=== PATIENT | female | born 1950 | race Caucasian/White ===

== ENCOUNTER 2021-09-15 09:33 | Outpatient (CLI) | payer MEDICARE, OTHER ==
--- NOTE | 2021-09-22 13:02 | Mammography Report ---
BILATERAL DIGITAL SCREENING MAMMOGRAM 3D/2D: 09/15/2021 CLINICAL: Routine screening. No prior exams were available for comparison. There are scattered fibroglandular elements in both br easts. There are 0.2 cm grouped coarse calcifications in the right breast at 12 o'clock anterior depth. No other significant masses, calcifications, or other findings are seen in either breast. IMPRESSION: INCOMPLETE: NEEDS ADDITIONAL IMAGING EVALUATION The 0.2 cm grouped coarse calcifications in the right breast are indeterminate. Diagnostic mammogram for additional views to include mediolateral and spot magnification views is rec ommended. This exam was interpreted at Station ID: [id number]. NOTE: For mammograms, a report in lay terms will be sent to the patient. Approximately 15% of breast malignancies will not be visualized mammographically. In the management of a palpable breast mass, a negative mammogram must not discourage biopsy of a clinically suspicious lesion. Electronically Signed By: Terrence William M.D. aty/:09/22/2021 11:30:05 ACR BI-RADS Category 0: Incomplete 3340F PARENCHYMAL PATTERN: (A) - The breast(s) demonstrate(s) scattered fibroglandular densities. BI-RADS CATEGORY: (0) - 0 RECOMMENDATION: (ADDMAM) - Recommend additional mammographic views. [id number] Immediate follow-up LATERALITY: (R)
== END 2021-09-15 09:34 | disposition home or self-care (01) ==
LOC: DI.S 09:33
PROVIDERS: ATTEND Family Medicine
DX: Z12.31 Encounter for screening mammogram for malignant neoplasm of breast (principal); R92.8 Other abnormal and inconclusive findings on diagnostic imaging of breast

== ENCOUNTER 2022-04-01 09:05 | Outpatient (CLI) | payer MEDICARE, OTHER ==
--- NOTE | 2022-04-01 13:53 | MRI Report ---
PROCEDURE: MRI brain without contrast INDICATIONS: DIZZINESS TECHNIQUE: Noncontrast axial T1 spin echo, axial T2 fast spin echo, sagittal and axial FLAIR, coronal T2 fast sp in echo, axial gradient echo, axial diffusion and ADC through the brain. COMPARISON: None. FINDINGS: Image quality: Excellent. CSF Spaces: Basal cisterns are patent. No extra-axial fluid collections. Ventricles are normal in size and shape. Brain: No intracranial masses or hemorrhage. Nicole/white matter interface is normal. Brainstem appe ars normal. Diffusion-weighted images demonstrate no acute infarct. Normal intravascular flow voids are present. Moderate atrophy and mild white matter chronic ischemic change present. Skull and face: Calvarium has normal marrow signal. Orbits appear normal. Sinuses: Sinuses and mastoids are clear. IMPRESSION: Atrophy and chronic ischemic change without acute hemorrhage, infarct or mass lesion Reviewed by: Boris Lane MD on 04/01/2022 12:52 PM AKDT Approved by: Boris Lane MD on 04/01/2022 12:52 PM AKDT Station ID: [id number]
== END 2022-04-01 09:06 | disposition home or self-care (01) ==
LOC: DI 09:05
PROVIDERS: ATTEND Nurse Practitioner Family
DX: G31.9 Degenerative disease of nervous system, unspecified (principal); I67.82 Cerebral ischemia; I65.23 Occlusion and stenosis of bilateral carotid arteries

== ENCOUNTER 2023-02-13 10:05 | Outpatient (CLI) | payer MEDICARE, OTHER ==
--- NOTE | 2023-02-15 13:52 | MRI Report ---
PROCEDURE: FOOT WO - RT INDICATIONS: RIGHT FOOT PAIN TECHNIQUE: Noncontrast sagittal T1 spin echo and T2 fast spin echo with fat saturation, long-axis T1 spin echo a nd T2 fast spin echo with fat saturation, short-axis proton density fast spin echo and T2 fast spin e cho with fat saturation through the forefoot. COMPARISON: Right foot radiographs 01/14/2023. FINDINGS: Image quality: Excellent. Bones and joints: Osseous edema is seen within the 1st metatarsal head without a clearly defined fra cture line is seen. There is also osseous edema in the adjacent medial hallux sesamoid and in the 1st proximal phalangeal base. Moderate 1st metatarsophalangeal joint osteoarthrosis. Mild osseous edema is seen within the dorsal aspect of the 2nd through 5th metatarsal heads. There is edema within the 5 th middle phalanx and focally within the adjacent 5th proximal phalangeal head. Mild edema within the remaining toes is likely related to scattered degenerative changes within the interphalangeal joints . Soft tissues: The visualized plantar foot muscles demonstrate normal signal and bulk. Visualized fl exor and extensor tendons appear intact, without tenosynovitis. Small nonspecific intermetatarsal bur ken effusions. Sagittal images demonstrate no evidence for plantar plate tears. IMPRESSION: 1.Osseous edema is seen within the 1st metatarsal head, 1st proximal phalangeal base, medial hallux s esamoid, dorsal aspect of the 2nd through 5th metatarsals, and the 5th middle phalanx, which is suspi cious for possible multiple osseous contusions. Recommend correlation with mechanism of prior injury. No definite fracture line is seen. 2.No significant ligament or tendon injury is seen. Reviewed by: Humphrey Yung MD on 02/15/2023 1:51 PM PDT Approved by: Humphrey Yung MD on 02/15/2023 1:51 PM PDT Station ID: [id number]
== END 2023-02-13 10:06 | disposition home or self-care (01) ==
LOC: DI 10:05
PROVIDERS: ATTEND Podiatrist
DX: R93.6 Abnormal findings on diagnostic imaging of limbs (principal)

== ENCOUNTER 2023-04-19 08:23 | Outpatient (CLI) | payer MEDICARE, OTHER ==
--- NOTE | 2023-04-20 08:41 | XRAY Report ---
PROCEDURE: Chest 2 View X-Ray INDICATIONS: DYSPNEA TECHNIQUE: 2 views of the chest were acquired. COMPARISON: None. FINDINGS: Surgical changes and devices: Intact sternotomy wires. Lungs and pleura: Lungs are clear. No pleural effusion or pneumothorax. Mediastinum: Mediastinal contours appear normal. Heart size is normal. Aortic arch is calcified, in dicating atherosclerosis. Bones and chest wall: No suspicious bony lesions. Overlying soft tissues appear unremarkable. Upper abdomen: Calcification of the abdominal aorta. Visualized upper abdomen is otherwise unremarkab le. IMPRESSION: No acute cardiopulmonary process. Reviewed by: Cortes Givens MD on 04/19/2023 12:43 PM PDT Approved by: Cortes Givens MD on 04/19/2023 12:43 PM PDT Station ID: [id number]
== END 2023-04-19 08:24 | disposition home or self-care (01) ==
LOC: DI.S 08:23
PROVIDERS: ATTEND Physician Assistant
DX: R06.00 Dyspnea, unspecified (principal)

== ENCOUNTER 2024-04-07 12:26 | Outpatient (CLI) | payer MEDICARE, OTHER ==
[2024-04-07] MEDS ORDERED: GADOTERATE MEGLUMINE 10 MMOL/20 ML VIAL ONE (12:57)
[2024-04-07] MEDS: GADOTERATE MEGLUMINE 10 MMOL/20 ML VIAL IVP ONE (14:30)
--- NOTE | 2024-04-08 19:21 | MRI Report ---
PROCEDURE: Brain W/WO INDICATIONS: Meningioma TECHNIQUE: Multiplanar multisequential MR images of the brain were obtained before and after intrave nous contrast administration. COMPARISON: Prior 04/01/2022 FINDINGS: CSF spaces: Basal cisterns are patent. No extra-axial fluid collections. Ventricles are normal in size and shape. Brain: No midline shift. No intracranial bleeds or masses. No abnormal intracranial enhancement. The brainstem appears normal. Diffusion-weighted images demonstrate no acute infarct. Normal intrav ascular flow voids are present. Skull and face: Calvarial marrow is normal in signal. Orbits appear normal. Sinuses: Sinuses and mastoids appear clear. IMPRESSION: Stable atrophy and mild chronic ischemic change without acute infarct, hemorrhage or mass lesion. No evidence of meningioma Reviewed by: Boris Lane MD on 04/08/2024 6:20 PM AKDT Approved by: Boris Lane MD on 04/08/2024 6:20 PM AKDT Station ID: [id number]
== END 2024-04-07 12:27 | disposition home or self-care (01) ==
LOC: DI 12:26
PROVIDERS: ATTEND Physician Assistant Medical
DX: D32.9 Benign neoplasm of meninges, unspecified (principal)
CPT/HCPCS: 70553; A9575

== ENCOUNTER 2025-04-13 11:00 | Inpatient (IN) ==
[2025-04-13 12:03] LABS: HCT - HEMATOCRIT 33.8 % (37.0-47.0); HGB - HEMOGLOBIN 11.5 g/dL (12.0-16.0); MEAN PLATELET VOLUME 8.9 fL (7.9-10.8); NRBC ABSOLUTE COUNT (AUTO) 0.00 x10^3/uL; NUCLEATED RED BLOOD CELLS AUTO 0.0 /100WBC; PLT - PLATELET COUNT 248 10^3/uL (130-450); RED CELL DISTRIBUTION WIDTH 12.6 % (12.0-15.0)
--- NOTE | 2025-04-13 12:05 | ED Physician Documentation ---
History of Present Illness Stated complaint Stated Complaint: LIGHHEADED, DIFF BALANCING, V,D, DEHYDRATED Chief complaint Chief Complaint: General History obtained from History obtained from: Patient History of Present Illness Timing: Prior to arrival Additonal information Additional information: Patient is a 74-year-old female presenting to the emergency department with generalized weakness nausea vomiting and diarrhea. Symptoms have been going on for about a week. About 2 to 3 weeks ago she restarted on her metformin and close quality that she takes for history of breast cancer. Meds/Allgy Home Medications Ambulatory Orders Medication Instructions Recorded Confirmed ribociclib 400 mg/day (200 mg x 2) 400 mg PO DAILY 04/14/25 tablets (Kisqali) Held on 03/08/25. Instructions: Resume on 03/19/25. please verify when to resume with oncology acetaminophen 325 mg tablet 650 mg (2 x 325 mg) PO Q4H R PRN 03/08/25 04/14/25 Pain 1 to 4, or Fever #30 tabs anastrozole 1 mg tablet 1 mg PO DAILY #30 tabs 03/0804/14/25 clopidogrel 75 mg tablet 75 mg PO DAILY #30 tabs 02/1704/13/25 paroxetine HCl 20 mg tablet 20 mg PO DAILY #30 tabs 04/14/25 vit,calcium 27-ferrous 1 tab PO DAILYWM #30 t abs 03/08/25 04/14/25 fum 60 mg iron-folic acid 1 mg tablet (Trinatal Rx 1) propranolol 20 mg tablet 20 mg PO BID #60 tabs 04/14/25 rosuvastatin 40 mg tablet 40 mg PO DAILY #30 tabs 02/1704/14/25 metformin 1,000 mg tablet 1,000 mg PO BID 04/03/25 Allergies Allergies Allergy/AdvReac Type Severity Reaction Status Date / Time No Known Drug Allergies Allergy Verified 04/13/25 11:12 PFSH Active Problems All Active Problems (Updated 04/13/25 @ 16:22 by ) NOLAN (acute kidney injury) (Acute) Nausea & vomiting (Acute) Pre-operative cardiovascular examination (Acute) Depression (Acute) Anemia (Acute) Hypokalemia (Acute) Generalized weakness (Acute) Diarrhea (Acute) Medical History Medical History (Updated 04/13/25 @ 16:22 by ) Subclavian bypass stenosis 1990 Hyperlipidemia History of Fxmoz-Hjdnszkgq-Bjqul (WPW) syndrome Hypertension Diabetes History of breast cancer Surgical History Surgical History (Updated 04/13/25 @ 14:29 by Nan Smith RN) S/P hysterectomy 1981 Family History Family History (Updated 04/13/25 @ 14:31 by Nan Smith RN) Father Heart attack High blood pressure Mother Diabetes Brother Cancer Son Mental disorder Social History Social History (Updated 04/12/25 @ 15:10 by Nan Smith RN) Smoking Status: Former smoker If you are a former smoker, when did you quit? (Date/Year): 1995 Number of Years Smoked: 41 Second hand tobacco smoke exposure: No Do you dip or chew tobacco?: No Level: Independent Home Mobility Equipment: Wheeled walker Do you feel safe in your home environment?: Yes History of physical, verbal, emotional, or financial abuse?: No ETOH Use: None Substance Use: denies use Exam Exam Vital Signs: Vital Signs x48h Temp Pulse Resp BP Pulse Ox 04/13/25 12:03 36.4 C L 92 133/61 H 100 04/13/25 11:10 36.8 C 98 18 135/93 H 98 Constitutional normal general appearance HENMT normocephalic, head/scalp atraumatic and hearing grossly normal bilaterally Oropharynx shows dry mucous membranes. Eyes PERRL, EOMs intact bilaterally and conjunctivae normal Neck/C-Spine visual inspection normal Lymph no lymphadenopathy noted Chest inspection of chest normal Respiratory breath sounds equal bilaterally, normal respiratory effort and clear to auscultation bilaterally Cardiovascular normal heart rate noted, regular rhythm noted and no gallop Gastrointestinal abdomen normal to inspection Abdomen nontender no rebound or guarding soft on examination no CVA tenderness. Results Vitals Vitals: Oxygen O2 Source Room air Labs Labs: Microbiology 04/13/25 16:03 Urine Culture - Final Urine,Random 50-100,000 COLONIES/ML Polymicrobial growth including potential pathogens. This is suggestive of skin or other contamination. Laboratory Tests 04/13/25 04/13/25 04/13/25 11:14 11:49 14:10 WBC 6.9 RBC 3.30 L Hgb 11.5 L Hct 33.8 L MCV 102.4 H MCH 34.8 H MCHC 34.0 RDW 12.6 Plt Count 248 MPV 8.9 Neut # (Auto) 5.2 Lymph # (Auto) 1.3 L [place] # (Auto) 0.3 Eos # (Auto) 0.0 Baso # (Auto) 0.1 Absolute Nucleated RBC 0.00 Nucleated RBC % 0.0 VBG pH VBG pCO2 VBG pO2 VBG HCO3 VBG Total CO2 VBG O2 Saturation VBG Base Excess Sodium 133 L Potassium 4.6 H Chloride 94 L Carbon Dioxide 15 L Anion Gap 24.0 H BUN 57 H Creatinine 3.4 H Estimated GFR (MDRD) 13 L Glucose 152 H POC Whole Bld Glucose Calcium 10.0 Total Bilirubin 0.8 AST 29 ALT 31 Alkaline Phosphatase 70 Total Protein 7.9 Albumin 4.3 Globulin 3.6 Albumin/Globulin Ratio 1.2 Lipase 37 Urine Color Urine Clarity Urine pH Ur Specific [place] Urine Protein Urine Glucose (UA) Urine Ketones Urine Occult Blood Urine Nitrite Urine Bilirubin Urine Urobilinogen Ur Leukocyte Esterase Urine RBC Urine WBC Ur Squamous Epith Cells Amorphous Sediment Urine Bacteria Urine Casts Ur Microscopic Review Urine Culture Comments Nasal Adenovirus (PCR) NOT DETECTED Nasal B. parapertussis DNA (PCR) NOT DETECTED Nasal Coronavir 229E PCR NOT DETECTED Nasal Coronavir HKU1 PCR NOT DETECTED Nasal Coronavir NL63 PCR NOT DETECTED Nasal Coronavir OC43 PCR NOT DETECTED Nasal Enterovir/Rhinovir PCR NOT DETECTED Nasal Influenza B PCR NOT DETECTED Nasal Influenza A PCR NOT DETECTED Nasal Parainfluen 1 PCR NOT DETECTED Nasal Parainfluen 2 PCR NOT DETECTED Nasal Parainfluen 3 PCR NOT DETECTED Nasal Parainfluen 4 PCR NOT DETECTED Nasal RSV (PCR) NOT DETECTED Nasal B.pertussis DNA PCR NOT DETECTED Nasal C.pneumoniae (PCR) NOT DETECTED [place] Human Metapneumo PCR NOT DETECTED Nasal M.pneumoniae (PCR) NOT DETECTED Nasal SARS-CoV-2 (PCR) NOT DETECTED Stl C. cayetanensis PCR Not Detected Stool Rotavirus A PCR Not Detected Stl Adenov F 40/41 PCR Not Detected Stool Astrovirus (PCR) Not Detected Stool Campylobacter PCR Not Detected Stl C. diff Tox A/B PCR Not Detected Stool Cryptosporidium PCR Not Detected Stl Sh Tox Pr E STEC PCR Not Detected Stool E coli O157 PCR Not applicable Stl Enterotoxigenic E PCR Not Detected Stool EPEC (PCR) Not Detected Stl E. histolytica PCR Not Detected Stool Giardia Lamblia PCR Not Detected Stl P. shigelloides PCR Not Detected Stool Salmonella PCR Not Detected Stool Sapovirus (PCR) Not Detected Stl Shigella/EIEC PCR Not Detected St Y.enterocolitica PCR Not Detected Stool Vibrio (PCR) Not Detected Stl Vibrio cholerae PCR Not Detected Stl Enteroaggr Ecoli PCR Not Detected Stl Norovirus GI/GII PCR Not Detected 04/13/25 04/13/25 04/14/25 15:14 16:03 07:36 WBC RBC Hgb Hct MCV MCH MCHC RDW Plt Count MPV Neut # (Auto) Lymph # (Auto) [place] # (Auto) Eos # (Auto) Baso # (Auto) Absolute Nucleated RBC Nucleated RBC % VBG pH VBG pCO2 VBG pO2 VBG HCO3 VBG Total CO2 VBG O2 Saturation VBG Base Excess Sodium 132 L 131 L Potassium 4.9 H 4.1 Chloride 98 L 104 Carbon Dioxide 15 L 13 L Anion Gap 19.0 H 14.0 H BUN 54 H 44 H Creatinine 3.0 H 3.0 H Estimated GFR (MDRD) 15 L 15 L Glucose 139 H 112 H POC Whole Bld Glucose Calcium 9.1 7.9 L Total Bilirubin 0.7 AST 26 ALT 26 Alkaline Phosphatase 63 Total Protein 6.8 Albumin 3.8 Globulin 3.0 Albumin/Globulin Ratio 1.3 Lipase Urine Color LIGHT YELLOW Urine Clarity HAZY Urine pH 6.0 Ur Specific [place] 1.025 Urine Protein 100 H Urine Glucose (UA) NEGATIVE Urine Ketones >=80 H Urine Occult Blood MODERATE Urine Nitrite NEGATIVE Urine Bilirubin NEGATIVE Urine Urobilinogen 0.2 (NORMAL) Ur Leukocyte Esterase MODERATE H Urine RBC 0-5 Urine WBC 11-25 H Ur Squamous Epith Cells FEW Squamous Amorphous Sediment Few Urine Bacteria Moderate H Urine Casts 6-10 Granular Casts Ur Microscopic Review INDICATED Urine Culture Comments INDICATED Nasal Adenovirus (PCR) Nasal B. parapertussis DNA (PCR) Nasal Coronavir 229E PCR Nasal Coronavir HKU1 PCR Nasal Coronavir NL63 PCR Nasal Coronavir OC43 PCR Nasal Enterovir/Rhinovir PCR Nasal Influenza B PCR Nasal Influenza A PCR Nasal Parainfluen 1 PCR Nasal Parainfluen 2 PCR Nasal Parainfluen 3 PCR Nasal Parainfluen 4 PCR Nasal RSV (PCR) Nasal B.pertussis DNA PCR Nasal C.pneumoniae (PCR) [place] Human Metapneumo PCR Nasal M.pneumoniae (PCR) Nasal SARS-CoV-2 (PCR) Stl C. cayetanensis PCR Stool Rotavirus A PCR Stl Adenov F PCR Stool Astrovirus (PCR) Stool Campylobacter PCR Stl C. diff Tox A/B PCR Stool Cryptosporidium PCR Stl Sh Tox Pr E STEC PCR Stool E coli O157 PCR Stl Enterotoxigenic E PCR Stool EPEC (PCR) Stl E. histolytica PCR Stool Giardia Lamblia PCR Stl P. shigelloides PCR Stool Salmonella PCR Stool Sapovirus (PCR) Stl Shigella/EIEC PCR St Y.enterocolitica PCR Stool Vibrio (PCR) Stl Vibrio cholerae PCR Stl Enteroaggr Ecoli PCR Stl Norovirus GI/GII PCR 04/14/25 04/14/25 11:45 11:55 WBC 4.5 L RBC 2.43 L Hgb 8.4 L Hct 24.7 L MCV 101.6 H MCH 34.6 H MCHC 34.0 RDW 12.8 Plt Count 149 MPV 8.9 Neut # (Auto) 3.6 Lymph # (Auto) 0.7 L [place] # (Auto) 0.2 Eos # (Auto) 0.1 Baso # (Auto) 0.0 Absolute Nucleated RBC 0.00 Nucleated RBC % 0.0 VBG pH 7.386 VBG pCO2 29.9 L VBG pO2 30.2 VBG HCO3 18.1 L VBG Total CO2 19.0 L VBG O2 Saturation 50.0 L VBG Base Excess -7.2 L Sodium Potassium Chloride Carbon Dioxide Anion Gap BUN Creatinine Estimated GFR (MDRD) Glucose POC Whole Bld Glucose 167 Calcium Total Bilirubin AST ALT Alkaline Phosphatase Total Protein Albumin Globulin Albumin/Globulin Ratio Lipase Urine Color Urine Clarity Urine pH Ur Specific [place] Urine Protein Urine Glucose (UA) Urine Ketones Urine Occult Blood Urine Nitrite Urine Bilirubin Urine Urobilinogen Ur Leukocyte Esterase Urine RBC Urine WBC Ur Squamous Epith Cells Amorphous Sediment Urine Bacteria Urine Casts Ur Microscopic Review Urine Culture Comments Nasal Adenovirus (PCR) Nasal B. parapertussis DNA (PCR) Nasal Coronavir 229E PCR Nasal Coronavir HKU1 PCR Nasal Coronavir NL63 PCR Nasal Coronavir OC43 PCR Nasal Enterovir/Rhinovir PCR Nasal Influenza B PCR Nasal Influenza A PCR Nasal Parainfluen 1 PCR Nasal Parainfluen 2 PCR Nasal Parainfluen 3 PCR Nasal Parainfluen 4 PCR Nasal RSV (PCR) Nasal B.pertussis DNA PCR Nasal C.pneumoniae (PCR) [place] Human Metapneumo PCR Nasal M.pneumoniae (PCR) Nasal SARS-CoV-2 (PCR) Stl C. cayetanensis PCR Stool Rotavirus A PCR Stl Adenov F 40/41 PCR Stool Astrovirus (PCR) Stool Campylobacter PCR Stl C. diff Tox A/B PCR Stool Cryptosporidium PCR Stl Sh Tox Pr E STEC PCR Stool E coli O157 PCR Stl Enterotoxigenic E PCR Stool EPEC (PCR) Stl E. histolytica PCR Stool Giardia Lamblia PCR Stl P. shigelloides PCR Stool Salmonella PCR Stool Sapovirus (PCR) Stl Shigella/EIEC PCR St Y.enterocolitica PCR Stool Vibrio (PCR) Stl Vibrio cholerae PCR Stl Enteroaggr Ecoli PCR Stl Norovirus GI/GII PCR PD Medical Decision Making ED course Complexity details: reviewed old records and reviewed results ED course: Patient 74-year-old female presenting to the emergency department with generalized weakness nausea vomiting diarrhea that has been going on for about a week and a half symptoms seem to restart after she restarted her case quality and metformin. She was admitted about a month and a half ago on 817 after a significant NOLAN secondary to dehydration she had recurrent falls at that time was admitted to SNF facility but was able to go back home about 3 weeks ago. About a week and a half ago she Began to develop the symptoms again. No recurrent falls she has been able to drink water since here in the ED but is reporting nausea. No fevers or chills she has some generalized body aches and weakness but no cough chest pain or shortness of breath. Labs are concerning here in the emergency department for creatinine of 3.4. Patient's baseline closer to 1.4 on discharge about a month ago. GFR of 13 with an anion gap of 24 bicarb 15 BUN 57. I discussed with patient and she feels the urge to urinate but is unable to give a sample here in the ED patient bladder scanned with 120 cc in bladder. Respiratory swab is negative at this time. Patient will be admitted for acute dehydration secondary to diarrhea nausea vomiting and chemo medications. Discharge Plan Discharge Patient Disposition: [facility] DC/Xfer Condition: Stable Clinical Impression: Nausea & vomiting, NOLAN (acute kidney injury) Diarrhea Qualifiers: Diarrhea type: unspecified type Qualified Code(s): R19.7 - Diarrhea, unspecified Interventions: ED Admission Assessment Last Done: 04/13/25 17:10 Vitals documented within 30 minutes of discharge?: Yes
[2025-04-13 12:10] LABS: B. PARAPERTUSSIS- RESP PCR PAN NOT DETECTED; B. PERTUSSIS- RESP PCR PANEL NOT DETECTED; C. PNEUMONIAE- RESP PCR PANEL NOT DETECTED; CORONAVIRUS 229E-RESP PCR NOT DETECTED; CORONAVIRUS HKU1-RESP PCR NOT DETECTED; CORONAVIRUS NL63-RESP PCR NOT DETECTED; CORONAVIRUS OC43-RESP PCR NOT DETECTED; HUMAN METAPNEUMOVIRUS NOT DETECTED; INFLUENZA A- RESP PCR PANEL NOT DETECTED; INFLUENZA B - RESP PCR PANEL NOT DETECTED; M. PNEUMONIAE- RESP PCR PANEL NOT DETECTED; PARAINFLUENZA VIRUS 1 NOT DETECTED; PARAINFLUENZA VIRUS 2 NOT DETECTED; PARAINFLUENZA VIRUS 4 NOT DETECTED; RHINOVIRUS/ENTEROVIRUS NOT DETECTED; RSV- RESP PCR PANEL NOT DETECTED; SARS-CoV-2 -RESP PCR PANEL NOT DETECTED
[2025-04-13 12:18] LABS: ALT ALANINE AMINOTRANSFERASE 31.0 IU/L (10-60); AST ASPARTATE AMINOTRANSFERASE 29.0 IU/L (10-42); BUN - BLOOD UREA NITROGEN 57.0 mg/dL (6-20); CARBON DIOXIDE - CO2 15.0 mmol/L (21-32); CREATININE 3.4 mg/dL (0.6-1.3); GFR - MDRD 13.0 (>89)
[2025-04-13] MEDS: SODIUM CHLORIDE 0.9% 1,000 ML IV STA (12:38)
[2025-04-13 15:35] LABS: ALT ALANINE AMINOTRANSFERASE 26.0 IU/L (10-60); AST ASPARTATE AMINOTRANSFERASE 26.0 IU/L (10-42); BUN - BLOOD UREA NITROGEN 54.0 mg/dL (6-20); CARBON DIOXIDE - CO2 15.0 mmol/L (21-32); CREATININE 3.0 mg/dL (0.6-1.3); GFR - MDRD 15.0 (>89)
--- NOTE | 2025-04-13 16:39 | HISTORY & PHYSICAL EXAMINATION ---
Chief Complaint Chief Complaint Chief Complaint: N/V/D History of Present Illness History Obtained From History obtained from: Patient interview History of Present Illness HPI Comment/Other: 74-year-old female with history of breast cancer on Scali as well as diabetes on metformin. She had an admission last month for acute dehydration with acute kidney injury. She stopped her metformin at that time, but then restarted it later. She reports nausea, vomiting, diarrhea for about a week. She went to establish herself with a new PCP yesterday, who recommended that she stop her metformin. Her symptoms have persisted and she is still weak and unable to drink enough water, so she presented to the ER In the ER, lab work was significant for creatinine 3.4, CO2 15, potassium 4.6. No elevation in WBC, RVP negative, UA in process. She was given a liter of IV fluids, and chemistry was rechecked and creatinine improved to 3.0. She is still incredibly weak with acute kidney injury, so hospitalist was contacted for observation Meds/Allgy Home Medications Ambulatory Orders Medication Instructions Recorded Confirmed ribociclib 400 mg/day (200 mg x 2) 400 mg PO DAILY 04/12/25 tablets (Kisqali) Held on 03/08/25. Instructions: Resume on 03/19/25. please verify when to resume with oncology acetaminophen 325 mg tablet 650 mg (2 x 325 mg) PO Q4H R PRN 03/08/25 Pain 1 to 4, or Fever #30 tabs anastrozole 1 mg tablet 1 mg PO DAILY #30 tabs 03/0804/12/25 clopidogrel 75 mg tablet 75 mg PO DAILY #30 tabs 02/1704/13/25 paroxetine HCl 20 mg tablet 20 mg PO DAILY #30 tabs 04/12/25 vit,calcium 27-ferrous 1 tab PO DAILYWM #30 t abs 03/08/25 fum 60 mg iron-folic acid 1 mg tablet (Trinatal Rx 1) propranolol 20 mg tablet 20 mg PO BID #60 tabs 04/12/25 rosuvastatin 40 mg tablet 40 mg PO DAILY #30 tabs 02/1704/12/25 thiamine mononitrate (vit B1) 100 100 mg PO DAILY #90 tabs 03/08/25 mg tablet (Vitamin B-1 (mononitrate)) dexamethasone 4 mg tablet 4 mg PO QDAY 04/03/25 evolocumab 140 mg/mL subcutaneous 140 mg subcut Q2W pen injector (shawnbj Cox) metformin 1,000 mg tablet 1,000 mg PO QDAY 04/03/25 olanzapine 5 mg tablet 5 mg PO QDAY 04/03/25 ondansetron HCl 8 mg tablet 8 mg PO DIRECTED prochlorperazine maleate 10 mg 10 mg PO DIRECTED tablet (Compazine) Allergies Allergies Allergy/AdvReac Type Severity Reaction Status Date / Time No Known Drug Allergies Allergy Verified 04/13/25 11:12 PFSH Active Problems All Active Problems (Updated 04/13/25 @ 16:22 by ) NOLAN (acute kidney injury) (Acute) Nausea & vomiting (Acute) Pre-operative cardiovascular examination (Acute) Depression (Acute) Anemia (Acute) Hypokalemia (Acute) Generalized weakness (Acute) Diarrhea (Acute) Medical History Medical History (Updated 04/13/25 @ 16:22 by ) Subclavian bypass stenosis 1990 Hyperlipidemia History of Uipzo-Bxmtxkhwm-Iknlv (WPW) syndrome Hypertension Diabetes History of breast cancer Surgical History Surgical History (Updated 04/13/25 @ 14:29 by Nan Smith RN) S/P hysterectomy 1981 Family History Family History (Updated 04/13/25 @ 14:31 by Nan Smith RN) Father Heart attack High blood pressure Mother Diabetes Brother Cancer Son Mental disorder Social History Social History (Updated 04/12/25 @ 15:10 by Nan Smith RN) Smoking Status: Former smoker If you are a former smoker, when did you quit? (Date/Year): 1994 Number of Years Smoked: 20 Level: Independent Do you feel safe in your home environment?: Yes History of physical, verbal, emotional, or financial abuse?: No ETOH Use: None Substance Use: denies use Review of Systems Status of ROS: 10 or more systems reviewed and unremarkable except as noted in history and below Constitutional Denies: Fever or Chills Gastrointestinal Reports: Nausea, Vomiting and Diarrhea; Denies: Abdominal pain Exam Exam Vital Signs: Vital Signs x48h Temp Pulse Resp BP Pulse Ox 04/13/25 16:08 93 24 135/105 H 04/13/25 16:07 91 18 04/13/25 16:06 105 H 18 04/13/25 15:04 88 17 130/92 H 97 04/13/25 15:04 87 16 130/92 H 98 04/13/25 14:02 90 22 133/58 H 04/13/25 14:02 91 21 133/58 H 51 L 04/13/25 13:02 85 20 140/90 H 04/13/25 13:02 88 19 140/90 H 99 04/13/25 12:03 133/61 H 100 04/13/25 12:03 36.4 C L 92 133/61 H 100 04/13/25 11:10 36.8 C 98 18 135/93 H 98 Constitutional normal general appearance and no apparent distress HENMT normocephalic and oral mucous membranes abnormal (dry) Eyes PERRL Chest inspection of chest normal and palpation of chest normal Respiratory breath sounds equal bilaterally and normal respiratory effort Cardiovascular normal heart rate noted Gastrointestinal abdomen normal to inspection, abdomen soft to palpation and nontender to palpation Neurology GCS 15 Psychiatry oriented x3 Skin skin color normal and skin turgor abnormal (tenting) Conclusion/Plan Problem List (1) NOLAN (acute kidney injury): Plan: Likely due to dehydration from kysqali and from metformin Metformin held as of yesterday Creatinine on presentation was 3.4, up from her baseline around 1.5 Her creatinine improved to 3 with 1 L of NS I have ordered an additional liter of IV fluid and a drip to go at 150 Her potassium up to 4.9, EKG ordered to monitor for cardiac fact BMP in a.m. (2) Diabetes: Plan: Managed with metformin at home Holding metformin SSI Qualifiers: Diabetes mellitus complication status: without complication Diabetes mellitus terminologist insulin use: without snf use Diabetes mellitus type: t ype 2 Qualified Code(s): E11.9 - Type 2 diabetes mellitus without complications Plan Placed in observation DNR, intubation okay Her is her surrogate decision-maker Declined POLST form Lab Results Lab results reviewed: Yes 04/13/25 11:49 04/13/25 15:14 Core Measures Anticipated LOS I expect patient to be DC'd or transferred within 96 hours.: Yes DVT/VTE - Prophylaxis VTE/DVT Prophylaxis med ordered at admit?: Yes
[2025-04-13 16:47] LABS: OCCULT BLOOD,URINE MODERATE (NEGATIVE)
[2025-04-13 16:48] LABS: GLUCOSE, URINE (UA) NEGATIVE (NEGATIVE); KETONES,URINE (UA) >=80 mg/dL (NEGATIVE)
[2025-04-13 16:49] LABS: AMORPHOUS SEDIMENT,UR Few /LPF; CASTS, URINE 6-10 Granular Casts /LPF; SQUAMOUS EPITHELIAL CELL,UR FEW Squamous (<= Few)
[2025-04-13] MEDS ORDERED: ONDANSETRON ODT 4 MG TABLET TL PRN (17:09)
[2025-04-13] MEDS ORDERED: SODIUM CHLORIDE FLUSH 0.9% 10 ML SYRINGE IVP PRN (17:09)
[2025-04-13] MEDS ORDERED: ONDANSETRON 4 MG/2 ML VIAL IVP PRN (17:09)
[2025-04-13] MEDS ORDERED: ACETAMINOPHEN 325 MG TABLET PO PRN (17:09)
[2025-04-13] MEDS: SODIUM CHLORIDE 0.9% 1,000 ML IV ONE (17:46)
[2025-04-13] MEDS: SODIUM CHLORIDE FLUSH 0.9% 10 ML SYRINGE IVP SCH (17:47)
[2025-04-13] MEDS: SODIUM CHLORIDE 0.9% 1,000 ML IV SCH (19:23)
[2025-04-13] MEDS: HEPARIN 5,000 UNIT/ML VIAL SUBQ SCH (21:38)
[2025-04-14 07:56] LABS: BUN - BLOOD UREA NITROGEN 44.0 mg/dL (6-20); CARBON DIOXIDE - CO2 13.0 mmol/L (21-32); CREATININE 3.0 mg/dL (0.6-1.3); GFR - MDRD 15.0 (>89)
[2025-04-14] MEDS: cefTRIAXone 1 GM VIAL IVP SCH (08:54)
--- NOTE | 2025-04-14 09:57 | PHARMACY PROGRESS NOTE ---
Best Possible Medication History Admit Date and Time: 04/13/25 1608 Home Medications Medication Instructions Recorded Confirmed Type ribociclib 400 mg/day (200 mg x 2) 400 mg PO DAILY 04/14/25 History tablets (Kisqali) Held on 03/08/25. Instructions: Resume on 03/19/25. please verify when to resume with oncology acetaminophen 325 mg tablet 650 mg (2 x 325 mg) PO Q4H R PRN 03/08/25 04/14/25 Rx Pain 1 to 4, or Fever #30 tabs anastrozole 1 mg tablet 1 mg PO DAILY #30 tabs 03/0804/14/25 Rx clopidogrel 75 mg tablet 75 mg PO DAILY #30 tabs 02/1704/13/25 Rx paroxetine HCl 20 mg tablet 20 mg PO DAILY #30 tabs 04/14/25 Rx vit,calcium 27-ferrous 1 tab PO DAILYWM #30 t abs 03/08/25 04/14/25 Rx fum 60 mg iron-folic acid 1 mg tablet (Trinatal Rx 1) propranolol 20 mg tablet 20 mg PO BID #60 tabs 04/14/25 Rx rosuvastatin 40 mg tablet 40 mg PO DAILY #30 tabs 02/1704/14/25 Rx metformin 1,000 mg tablet 1,000 mg PO BID 04/03/25 History Processed by: Pharmacy Medications reviewed in ED?: No Medication History completed: Yes Patient Interview: Completed Secondary Source(s): Pharmacy records and Insurance records [facility] Statement: As the person ultimately responsible for medication therapy, providers are able to order a medication from an existing home medication list in [facility] via the "Reconcile Routine" prior to Confirmation of that medication by it application support analyst. Such practice is discouraged except when the physician, in their clinical judgment, deems that a medical need exists for a medication without regard to previous use.
[2025-04-14 12:03] LABS: HCT - HEMATOCRIT 24.7 % (37.0-47.0); HGB - HEMOGLOBIN 8.4 g/dL (12.0-16.0); MEAN PLATELET VOLUME 8.9 fL (7.9-10.8); NRBC ABSOLUTE COUNT (AUTO) 0.00 x10^3/uL; NUCLEATED RED BLOOD CELLS AUTO 0.0 /100WBC; PLT - PLATELET COUNT 149 10^3/uL (130-450); RED CELL DISTRIBUTION WIDTH 12.8 % (12.0-15.0)
[2025-04-14 12:17] LABS: VBG PH 7.386 (7.31-7.41)
[2025-04-14 12:18] LABS: VBG BASE EXCESS -7.2 mmol/L (-2 - +2); VBG PCO2 29.9 mmHg (41-51); VBG PO2 30.2 mmHg (25-47); VBG TOTAL CO2 19.0 mmol/L (24-29)
[2025-04-14] MEDS: INSULIN LISPRO 300 UNIT/3 ML PEN SUBQ SCH (12:25)
[2025-04-14] MEDS: FOSFOMYCIN TROMETHAMINE 3 GM PACKET PO ONE (12:25)
--- NOTE | 2025-04-14 14:21 | PROVIDER PROGRESS NOTE ---
Subjective Prog Note Date Prog Note Date: 04/14/25 Subjective Pt reports feeling: Improved Current Medications Current Medications Current Medications: Current Medications Generic Name Dose Route Start Last Admin Trade Name Freq PRN Reason Stop Dose Admin Acetaminophen 650 mg 04/13/25 17:09 Acetaminophen 325 Mg Tablet PO Q4HR PRN Pain 1 to 4, or Fever Heparin Sodium (Porcine) 5,000 unit 04/13/25 21:00 04/14/25 08:54 Heparin 5,000 Unit/Ml Vial SUBQ 5,000 unit BID CHAVA Administration Lactated Ringer's 1,000 mls @ 150 mls/hr 04/14/25 13:00 Lr IV 04/15/25 08:59 .Q6H40M CHAVA Insulin Human Lispro 1 - 5 unit 04/14/25 12:00 04/14/25 12:25 Insulin Lispro 300 Unit/3 Ml Pen SUBQ 1 unit 0800,1200,1700,2100 CHAVA Administration Protocol Ondansetron HCl 4 mg 04/13/25 17:09 Ondansetron Odt 4 Mg Tablet TL Q6HR PRN Nausea / Vomiting Ondansetron HCl 4 mg 04/13/25 17:09 Ondansetron 4 Mg/2 Ml Vial IVP Q6HR PRN Nausea / Vomiting Sodium Chloride 10 ml 04/13/25 17:09 Sodium Chloride Flush 0.9% 10 Ml Syringe IVP PRN PRN NEEDED PER PROVIDER ORDERS Sodium Chloride 10 ml 04/13/25 17:09 04/14/25 08:55 Sodium Chloride Flush 0.9% 10 Ml Syringe IVP 10 ml 0100,0900,1700 CHAVA Administration Objective Vital Signs/Intake & Output Reviewed Vital Signs: Yes Vital Signs: Vital Signs x48h Temp Pulse Resp BP BP Pulse Ox 04/14/25 13:00 36.5 C 92 18 93/46 L 95 04/14/25 07:41 36.4 C L 16 95/47 L 98 Intake & Output: Intake & Output 04/11/25 04/12/25 04/13/25 04/14/25 23:59 23:59 23:59 23:59 Intake Total 1999 Balance 1999 Weight (kg) 76.657 kg Objective General Appearance: positive No acute distress and Alert Eyes Bilateral: positive Normal inspection ENT: positive ENT inspection nml Neck: positive Nml inspection Respiratory: positive Chest non-tender and No respiratory distress Cardiovascular: positive Regular rate & rhythm Abdomen: positive Non-tender Skin: positive Color nml Extremities: positive Non-tender Neurologic/Psychiatric: positive Oriented x3 Lab Results 04/14/25 11:45 04/14/25 07:36 Other Labs: Lab Results x24hrs 04/14/25 04/14/25 04/14/25 Range/Units 11:55 11:45 07:36 WBC 4.5 L (4.8-10.8) x10^3/uL RBC 2.43 L (4.20-5.40) 10^6/uL Hgb 8.4 L (12.0-16.0) g/dL Hct 24.7 L (37.0-47.0) % MCV 101.6 H (81.0-99.0) fL MCH 34.6 H (27.0-31.0) pg MCHC 34.0 (32.0-36.0) g/dL RDW 12.8 (12.0-15.0) % Plt Count 149 (130-450) 10^3/uL MPV 8.9 (7.9-10.8) fL Neut # (Auto) 3.6 (1.5-6.6) 10^3/uL Lymph # (Auto) 0.7 L (1.5-3.5) 10^3/uL [place] # (Auto) 0.2 (0.0-1.0) 10^3/uL Eos # (Auto) 0.1 (0.0-0.7) 10^3/uL Baso # (Auto) 0.0 (0.0-0.1) 10^3/uL Absolute Nucleated RBC 0.00 x10^3/uL Nucleated RBC % 0.0 /100WBC VBG pH 7.386 (7.31-7.41) VBG pCO2 29.9 L (41-51) mmHg VBG pO2 30.2 (25-47) mmHg VBG HCO3 18.1 L (23-28) mmol/L VBG Total CO2 19.0 L (24-29) mmol/L VBG O2 Saturation 50.0 L (60-80) % VBG Base Excess -7.2 L (-2 - +2) mmol/L Sodium 131 L (135-145) mmol/L Potassium 4.1 (3.5-4.5) mmol/L Chloride 104 (101-111) mmol/L Carbon Dioxide 13 L (21-32) mmol/L Anion Gap 14.0 H (6-13) BUN 44 H (6-20) mg/dL Creatinine 3.0 H (0.6-1.3) mg/dL Estimated GFR (MDRD) 15 L (>89) Glucose 112 H (74-104) mg/dL POC Whole Bld Glucose 167 (70-100) mg/dL Calcium 7.9 L (8.5-10.3) mg/dL Total Bilirubin (0.2-1.0) mg/dL AST (10-42) IU/L ALT (10-60) IU/L Alkaline Phosphatase (42-121) IU/L Total Protein (6.4-8.9) g/dL Albumin (3.2-5.5) g/dL Globulin (2.1-4.2) g/dL Albumin/Globulin Ratio (1.0-2.2) Urine Color Urine Clarity (CLEAR) Urine pH (5.0-7.5) PH Ur Specific [place] (1.002-1.030) Urine Protein (NEGATIVE) mg/dL Urine Glucose (UA) (NEGATIVE) mg/dL Urine Ketones (NEGATIVE) mg/dL Urine Occult Blood (NEGATIVE) Urine Nitrite (NEGATIVE) Urine Bilirubin (NEGATIVE) Urine Urobilinogen (NORMAL) E.U./dL Ur Leukocyte Esterase (NEGATIVE) Urine RBC (0-5) /HPF Urine WBC (0-5) /HPF Ur Squamous Epith Cells (<= Few) Amorphous Sediment /LPF Urine Bacteria (None Seen) /HPF Urine Casts /LPF Ur Microscopic Review Urine Culture Comments 04/13/25 04/13/25 Range/Units 16:03 15:14 WBC (4.8-10.8) x10^3/uL RBC (4.20-5.40) 10^6/uL Hgb (12.0-16.0) g/dL Hct (37.0-47.0) % MCV (81.0-99.0) fL MCH (27.0-31.0) pg MCHC (32.0-36.0) g/dL RDW (12.0-15.0) % Plt Count (130-450) 10^3/uL MPV (7.9-10.8) fL Neut # (Auto) (1.5-6.6) 10^3/uL Lymph # (Auto) (1.5-3.5) 10^3/uL [place] # (Auto) (0.0-1.0) 10^3/uL Eos # (Auto) (0.0-0.7) 10^3/uL Baso # (Auto) (0.0-0.1) 10^3/uL Absolute Nucleated RBC x10^3/uL Nucleated RBC % /100WBC VBG pH (7.31-7.41) VBG pCO2 (41-51) mmHg VBG pO2 (25-47) mmHg VBG HCO3 (23-28) mmol/L VBG Total CO2 (24-29) mmol/L VBG O2 Saturation (60-80) % VBG Base Excess (-2 - +2) mmol/L Sodium 132 L (135-145) mmol/L Potassium 4.9 H (3.5-4.5) mmol/L Chloride 98 L (101-111) mmol/L Carbon Dioxide 15 L (21-32) mmol/L Anion Gap 19.0 H (6-13) BUN 54 H (6-20) mg/dL Creatinine 3.0 H (0.6-1.3) mg/dL Estimated GFR (MDRD) 15 L (>89) Glucose 139 H (74-104) mg/dL POC Whole Bld Glucose (70-100) mg/dL Calcium 9.1 (8.5-10.3) mg/dL Total Bilirubin 0.7 (0.2-1.0) mg/dL AST 26 (10-42) IU/L ALT 26 (10-60) IU/L Alkaline Phosphatase 63 (42-121) IU/L Total Protein 6.8 (6.4-8.9) g/dL Albumin 3.8 (3.2-5.5) g/dL Globulin 3.0 (2.1-4.2) g/dL Albumin/Globulin Ratio 1.3 (1.0-2.2) Urine Color LIGHT YELLOW Urine Clarity HAZY (CLEAR) Urine pH 6.0 (5.0-7.5) PH Ur Specific [place] 1.025 (1.002-1.030) Urine Protein 100 H (NEGATIVE) mg/dL Urine Glucose (UA) NEGATIVE (NEGATIVE) mg/dL Urine Ketones >=80 H (NEGATIVE) mg/dL Urine Occult Blood MODERATE (NEGATIVE) Urine Nitrite NEGATIVE (NEGATIVE) Urine Bilirubin NEGATIVE (NEGATIVE) Urine Urobilinogen 0.2 (NORMAL) (NORMAL) E.U./dL Ur Leukocyte Esterase MODERATE H (NEGATIVE) Urine RBC 0-5 (0-5) /HPF Urine WBC 11-25 H (0-5) /HPF Ur Squamous Epith Cells FEW Squamous (<= Few) Amorphous Sediment Few /LPF Urine Bacteria Moderate H (None Seen) /HPF Urine Casts 6-10 Granular Casts /LPF Ur Microscopic Review INDICATED Urine Culture Comments INDICATED Assessment/Plan Problem List (1) NOLAN (acute kidney injury): Impression: Acute kidney injury is secondary to medication effect from metformin Her potassium is now going down, it was 4.1 this morning I am switching her IV fluids to LR at 150 as she does have a metabolic acidosis VBG shows pH 7.386, so she is compensating for this acidosis If she decompensates, she would likely benefit from bicarb BMP in a.m. (2) Diabetes: Impression: I have held her metformin, I recommend she continue holding this as this is her second episode of acute kidney injury secondary to this Most recent A1c 7.3 in February of this year SSI Qualifiers: Diabetes mellitus type: type 2 Diabetes mellitus overlock hemmer insulin use: without longterm use Diabetes mellitus complication status: without complication Qualified Code(s): E11.9 - Type 2 diabetes mellitus without complications
[2025-04-14] MEDS: LACTATED RINGERS 1,000 ML IV SCH (15:30)
[2025-04-15 05:26] LABS: HCT - HEMATOCRIT 22.6 % (37.0-47.0); HGB - HEMOGLOBIN 7.6 g/dL (12.0-16.0); MEAN PLATELET VOLUME 9.1 fL (7.9-10.8); PLT - PLATELET COUNT 121 10^3/uL (130-450); RED CELL DISTRIBUTION WIDTH 12.9 % (12.0-15.0)
[2025-04-15 05:31] LABS: ABNORMAL LYMPHS % (MANUAL) 0 %; BAND NEUTROPHILS % (MANUAL) 0 %
[2025-04-15 05:47] LABS: BUN - BLOOD UREA NITROGEN 32.0 mg/dL (6-20); CARBON DIOXIDE - CO2 23.0 mmol/L (21-32); CREATININE 2.8 mg/dL (0.6-1.3); GFR - MDRD 17.0 (>89)
[2025-04-15 05:50] LABS: BASOPHILS # (MANUAL) 0.1 10^3/uL (0-0.1); BASOPHILS % (MANUAL) 2 %; EOSINOPHILS # (MANUAL) 0.1 10^3/uL (0-0.7); LYMPHOCYTES # (MANUAL) 0.8 10^3/uL (1.5-3.5); LYMPHOCYTES % (MANUAL) 29 %; MONOCYTES # (MANUAL) 0.2 10^3/uL (0.0-1.0); NEUTROPHILS # (MANUAL) 1.7 10^3/uL (1.5-6.6); PLATELET ESTIMATE, MANUAL DECREASED (<130,000) (NORMAL); PLATELET MORPHOLOGY NORMAL APPEARANCE (NORMAL); RBC MORPHOLOGY (MULTIPLE) NORMAL APPEARANCE (NORMAL); WBC MORPHOLOGY (MULTIPLE) NORMAL APPEARANCE (NORMAL)
[2025-04-15 08:08] LABS: ADENOVIRUS F 40/41 Not Detected (Not Detected); ASTROVIRUS Not Detected (Not Detected); C DIFFICILE TOXIN A/B Not Detected (Not Detected); CAMPYLOBACTER Not Detected (Not Detected); CRYPTOSPORIDIUM Not Detected (Not Detected); CYCLOSPORA CAYETANENSIS Not Detected (Not Detected); ENTAMOEBA HISTOLYTICA Not Detected (Not Detected); ENTEROAGGREGATIVE E COLI Not Detected (Not Detected); ENTEROPATHOGENIC E COLI Not Detected (Not Detected); ENTEROTOXIGENIC E COLI Not Detected (Not Detected); GIARDIA LAMBLIA Not Detected (Not Detected); NOROVIRUS GI/GII Not Detected (Not Detected); PLESIOMONAS SHIGELLOIDES Not Detected (Not Detected); ROTAVIRUS A Not Detected (Not Detected); SALMONELLA Not Detected (Not Detected); SAPOVIRUS Not Detected (Not Detected); SHIGA-TOXIN-PRODUCING E COLI Not Detected (Not Detected); SHIGELLA/ENTEROINVASIVE E COLI Not Detected (Not Detected); VIBRIO Not Detected (Not Detected); VIBRIO CHOLERAE Not Detected (Not Detected); YERSINIA ENTEROCOLITICA Not Detected (Not Detected)
[2025-04-15] MEDS: POTASSIUM CHLORIDE 20 MEQ TABLET PO ONE (09:52)
[2025-04-15] MEDS: LACTATED RINGERS 1,000 ML IV SCH (12:24)
--- NOTE | 2025-04-15 12:39 | PROVIDER PROGRESS NOTE ---
Subjective Prog Note Date Prog Note Date: 04/15/25 Subjective Pt reports feeling: No change Current Medications Current Medications Current Medications: Current Medications Generic Name Dose Route Start Last Admin Trade Name Freq PRN Reason Stop Dose Admin Acetaminophen 650 mg 04/13/25 17:09 Acetaminophen 325 Mg Tablet PO Q4HR PRN Pain 1 to 4, or Fever Heparin Sodium (Porcine) 5,000 unit 04/13/25 21:00 04/15/25 08:34 Heparin 5,000 Unit/Ml Vial SUBQ 5,000 unit BID CHAVA Administration Lactated Ringer's 1,000 mls @ 150 mls/hr 04/15/25 11:00 04/15/25 12:24 Lr IV 04/16/25 06:59 150 mls/hr .Q6H40M CHAVA Administration Insulin Human Lispro 1 - 5 unit 04/14/25 12:00 04/15/25 12:20 Insulin Lispro 300 Unit/3 Ml Pen SUBQ 1 unit 0800,1200,1700,2100 CHAVA Administration Protocol Ondansetron HCl 4 mg 04/13/25 17:09 Ondansetron Odt 4 Mg Tablet TL Q6HR PRN Nausea / Vomiting Ondansetron HCl 4 mg 04/13/25 17:09 Ondansetron 4 Mg/2 Ml Vial IVP Q6HR PRN Nausea / Vomiting Sodium Chloride 10 ml 04/13/25 17:09 Sodium Chloride Flush 0.9% 10 Ml Syringe IVP PRN PRN NEEDED PER PROVIDER ORDERS Sodium Chloride 10 ml 04/13/25 17:09 04/15/25 08:34 Sodium Chloride Flush 0.9% 10 Ml Syringe IVP 10 ml 0100,0900,1700 CHAVA Administration Objective Vital Signs/Intake & Output Reviewed Vital Signs: Yes Vital Signs: Vital Signs x48h Temp Pulse Resp BP Pulse Ox 04/15/25 09:00 36.5 C 101 H 7 L 116/53 L 94 Intake & Output: Intake & Output 04/12/25 04/13/25 04/14/25 04/15/25 23:59 23:59 23:59 23:59 Intake Total 1999 4538 / 4538 2236 / 2236 Output Total 400 / 400 Balance 1999 4138 / 4138 2236 / 2236 Weight (kg) 76.657 kg Objective General Appearance: positive No acute distress and Alert Eyes Bilateral: positive Normal inspection ENT: positive ENT inspection nml Neck: positive Nml inspection Respiratory: positive Chest non-tender and No respiratory distress Cardiovascular: positive Regular rate & rhythm Abdomen: positive Non-tender Skin: positive Color nml Extremities: positive Non-tender Neurologic/Psychiatric: positive Oriented x3 Lab Results 04/15/25 04:37 04/15/25 04:37 Other Labs: Lab Results x24hrs 04/15/25 04/15/25 04/15/25 Range/Units 11:48 08:01 04:37 WBC 2.9 L (4.8-10.8) x10^3/uL RBC 2.24 L (4.20-5.40) 10^6/uL Hgb 7.6 L (12.0-16.0) g/dL Hct 22.6 L (37.0-47.0) % MCV 100.9 H (81.0-99.0) fL MCH 33.9 H (27.0-31.0) pg MCHC 33.6 (32.0-36.0) g/dL RDW 12.9 (12.0-15.0) % Plt Count 121 L (130-450) 10^3/uL MPV 9.1 (7.9-10.8) fL Neut # (Auto) Not Reportable Lymph # (Auto) Not Reportable [place] # (Auto) Not Reportable Eos # (Auto) Not Reportable Baso # (Auto) Not Reportable Absolute Nucleated RBC Not Reportable Total Counted 100 Band Neuts % (Manual) 0 (0 - 10) % Abnorm Lymph % (Manual) 0 % Nucleated RBC % Not Reportable Neutrophils # (Manual) 1.7 (1.5-6.6) 10^3/uL Lymphocytes # (Manual) 0.8 L (1.5-3.5) 10^3/uL Monocytes # (Manual) 0.2 (0.0-1.0) 10^3/uL Eosinophils # (Manual) 0.1 (0-0.7) 10^3/uL Basophils # (Manual) 0.1 (0-0.1) 10^3/uL Differential Comment MANUAL DIFFERENTIAL WBC Morphology NORMAL APPEARANCE (NORMAL) Platelet Estimate DECREASED (<130,000) (NORMAL) Platelet Morphology NORMAL APPEARANCE (NORMAL) RBC Morph Micro Appear NORMAL APPEARANCE (NORMAL) Sodium 140 (135-145) mmol/L Potassium 3.1 L (3.5-4.5) mmol/L Chloride 109 (101-111) mmol/L Carbon Dioxide 23 (21-32) mmol/L Anion Gap 8.0 (6-13) BUN 32 H (6-20) mg/dL Creatinine 2.8 H (0.6-1.3) mg/dL Estimated GFR (MDRD) 17 L (>89) Glucose 115 H (74-104) mg/dL POC Whole Bld Glucose 174 117 (70-100) mg/dL Calcium 8.0 L (8.5-10.3) mg/dL Stl C. cayetanensis PCR (Not Detected) Stool Rotavirus A PCR (Not Detected) Stl Adenov F 40/41 PCR (Not Detected) Stool Astrovirus (PCR) (Not Detected) Stool Campylobacter PCR (Not Detected) Stl C. diff Tox A/B PCR (Not Detected) Stool Cryptosporidium PCR (Not Detected) Stl Sh Tox Pr E STEC PCR (Not Detected) Stool E coli O157 PCR (Not Detected) Stl Enterotoxigenic E PCR (Not Detected) Stool EPEC (PCR) (Not Detected) Stl E. histolytica PCR (Not Detected) Stool Giardia Lamblia PCR (Not Detected) Stl P. shigelloides PCR (Not Detected) Stool Salmonella PCR (Not Detected) Stool Sapovirus (PCR) (Not Detected) Stl Shigella/EIEC PCR (Not Detected) St Y.enterocolitica PCR (Not Detected) Stool Vibrio (PCR) (Not Detected) Stl Vibrio cholerae PCR (Not Detected) Stl Enteroaggr Ecoli PCR (Not Detected) Stl Norovirus GI/GII PCR (Not Detected) 04/14/25 04/14/25 04/13/25 Range/Units 20:26 16:33 14:10 WBC (4.8-10.8) x10^3/uL RBC (4.20-5.40) 10^6/uL Hgb (12.0-16.0) g/dL Hct (37.0-47.0) % MCV (81.0-99.0) fL MCH (27.0-31.0) pg MCHC (32.0-36.0) g/dL RDW (12.0-15.0) % Plt Count (130-450) 10^3/uL MPV (7.9-10.8) fL Neut # (Auto) Lymph # (Auto) [place] # (Auto) Eos # (Auto) Baso # (Auto) Absolute Nucleated RBC Total Counted Band Neuts % (Manual) (0 - 10) % Abnorm Lymph % (Manual) % Nucleated RBC % Neutrophils # (Manual) (1.5-6.6) 10^3/uL Lymphocytes # (Manual) (1.5-3.5) 10^3/uL Monocytes # (Manual) (0.0-1.0) 10^3/uL Eosinophils # (Manual) (0-0.7) 10^3/uL Basophils # (Manual) (0-0.1) 10^3/uL Differential Comment WBC Morphology (NORMAL) Platelet Estimate (NORMAL) Platelet Morphology (NORMAL) RBC Morph Micro Appear (NORMAL) Sodium (135-145) mmol/L Potassium (3.5-4.5) mmol/L Chloride (101-111) mmol/L Carbon Dioxide (21-32) mmol/L Anion Gap (6-13) BUN (6-20) mg/dL Creatinine (0.6-1.3) mg/dL Estimated GFR (MDRD) (>89) Glucose (74-104) mg/dL POC Whole Bld Glucose 162 179 (70-100) mg/dL Calcium (8.5-10.3) mg/dL Stl C. cayetanensis PCR Not Detected (Not Detected) Stool Rotavirus A PCR Not Detected (Not Detected) Stl Adenov F 40/41 PCR Not Detected (Not Detected) Stool Astrovirus (PCR) Not Detected (Not Detected) Stool Campylobacter PCR Not Detected (Not Detected) Stl C. diff Tox A/B PCR Not Detected (Not Detected) Stool Cryptosporidium PCR Not Detected (Not Detected) Stl Sh Tox Pr E STEC PCR Not Detected (Not Detected) Stool E coli O157 PCR Not applicable (Not Detected) Stl Enterotoxigenic E PCR Not Detected (Not Detected) Stool EPEC (PCR) Not Detected (Not Detected) Stl E. histolytica PCR Not Detected (Not Detected) Stool Giardia Lamblia PCR Not Detected (Not Detected) Stl P. shigelloides PCR Not Detected (Not Detected) Stool Salmonella PCR Not Detected (Not Detected) Stool Sapovirus (PCR) Not Detected (Not Detected) Stl Shigella/EIEC PCR Not Detected (Not Detected) St Y.enterocolitica PCR Not Detected (Not Detected) Stool Vibrio (PCR) Not Detected (Not Detected) Stl Vibrio cholerae PCR Not Detected (Not Detected) Stl Enteroaggr Ecoli PCR Not Detected (Not Detected) Stl Norovirus GI/GII PCR Not Detected (Not Detected) Assessment/Plan Problem List (1) NOLAN (acute kidney injury): Impression: Acute kidney injury is secondary to medication effect from metformin Her potassium is now going down, it was 4.1 this morning I am switching her IV fluids to LR at 150 as she does have a metabolic acidosis VBG shows pH 7.386, so she is compensating for this acidosis If she decompensates, she would likely benefit from bicarb BMP in a.m. 04/15:Her creatinine is 2.8 this morning. Potassium 3.1, repleted. Continue LR at 150. I hope to see significant improvement in her creatinine by tomorrow and her GFR needs to be greater than 20 to safely discharge (2) Diabetes: Impression: I have held her metformin, I recommend she continue holding this as this is her second episode of acute kidney injury secondary to this Most recent A1c 7.3 in February of this year SSI Qualifiers: Diabetes mellitus type: type 2 Diabetes mellitus senior care insulin use: without senior care use Diabetes mellitus complication status: without complication Qualified Code(s): E11.9 - Type 2 diabetes mellitus without complications
[2025-04-16 05:06] LABS: HCT - HEMATOCRIT 24.1 % (37.0-47.0); HGB - HEMOGLOBIN 8.0 g/dL (12.0-16.0); MEAN PLATELET VOLUME 9.5 fL (7.9-10.8); PLT - PLATELET COUNT 112 10^3/uL (130-450); RED CELL DISTRIBUTION WIDTH 12.9 % (12.0-15.0)
[2025-04-16 05:15] LABS: ABNORMAL LYMPHS % (MANUAL) 0 %; BAND NEUTROPHILS % (MANUAL) 0 %; BASOPHILS # (MANUAL) 0.0 10^3/uL (0-0.1); EOSINOPHILS # (MANUAL) 0.0 10^3/uL (0-0.7)
[2025-04-16 05:26] LABS: BUN - BLOOD UREA NITROGEN 20.0 mg/dL (6-20); CARBON DIOXIDE - CO2 26.0 mmol/L (21-32); CREATININE 2.5 mg/dL (0.6-1.3); GFR - MDRD 19.0 (>89)
[2025-04-16 05:47] LABS: BASOPHILS % (MANUAL) 1 %; LYMPHOCYTES # (MANUAL) 0.9 10^3/uL (1.5-3.5); LYMPHOCYTES % (MANUAL) 29 %; MONOCYTES # (MANUAL) 0.1 10^3/uL (0.0-1.0); NEUTROPHILS # (MANUAL) 2.0 10^3/uL (1.5-6.6); PLATELET MORPHOLOGY NORMAL APPEARANCE (NORMAL); RBC MORPHOLOGY (MULTIPLE) NORMAL APPEARANCE (NORMAL)
[2025-04-16 05:48] LABS: PLATELET ESTIMATE, MANUAL DECREASED (<130,000) (NORMAL); WBC MORPHOLOGY (MULTIPLE) NORMAL APPEARANCE (NORMAL)
[2025-04-16] MEDS: POTASSIUM CHLORIDE 20 MEQ TABLET PO ONE (10:52)
[2025-04-16] MEDS: MAGNESIUM SULFATE 2 GRAM 2 GM/50 ML BAG IV ONE (11:20)
[2025-04-16] MEDS: LACTATED RINGERS 1,000 ML IV SCH (11:21)
--- NOTE | 2025-04-16 12:11 | PROVIDER PROGRESS NOTE ---
Subjective Prog Note Date Prog Note Date: 04/16/25 Subjective Pt reports feeling: No change Current Medications Current Medications Current Medications: Current Medications Generic Name Dose Route Start Last Admin Trade Name Judit PRN Reason Stop Dose Admin Acetaminophen 650 mg 04/13/25 17:09 Acetaminophen 325 Mg Tablet PO Q4HR PRN Pain 1 to 4, or Fever Apixaban 2.5 mg 04/16/25 21:00 Apixaban 2.5 Mg Tablet PO BID CHAVA Magnesium Sulfate 2 gm in 50 mls @ 25 mls/hr 04/16/25 11:08 04/16/25 11:20 Magnesium Sulfate IV 04/16/25 13:07 25 mls/hr ONCE ONE Administration Lactated Ringer's 1,000 mls @ 125 mls/hr 04/16/25 12:00 04/16/25 11:21 Lr IV 125 mls/hr .Q8H CHAVA Administration Insulin Human Lispro 1 - 5 unit 04/14/25 12:00 04/16/25 08:55 Insulin Lispro 300 Unit/3 Ml Pen SUBQ Not Given 0800,1200,1700,2100 [facility] Protocol Ondansetron HCl 4 mg 04/13/25 17:09 Ondansetron Odt 4 Mg Tablet TL Q6HR PRN Nausea / Vomiting Ondansetron HCl 4 mg 04/13/25 17:09 Ondansetron 4 Mg/2 Ml Vial IVP Q6HR PRN Nausea / Vomiting Sodium Chloride 10 ml 04/13/25 17:09 Sodium Chloride Flush 0.9% 10 Ml Syringe IVP PRN PRN NEEDED PER PROVIDER ORDERS Sodium Chloride 10 ml 04/13/25 17:09 04/16/25 08:56 Sodium Chloride Flush 0.9% 10 Ml Syringe IVP Not Given 0100,0900,1700 [facility] Objective Vital Signs/Intake & Output Reviewed Vital Signs: Yes Vital Signs: Vital Signs x48h Temp Pulse Resp BP Pulse Ox 04/16/25 07:46 36.4 C L 93 18 133/68 H 96 Intake & Output: Intake & Output 04/13/25 04/14/25 04/15/25 04/16/25 23:59 23:59 23:59 23:59 Intake Total 1999 4538 / 4538 3986 / 3986 3470 / 3470 Output Total 400 / 400 Balance 1999 4138 / 4138 3986 / 3986 3470 / 3470 Weight (kg) 76.657 kg Objective General Appearance: positive No acute distress and Alert Eyes Bilateral: positive Normal inspection ENT: positive ENT inspection nml Neck: positive Nml inspection Respiratory: positive Chest non-tender and No respiratory distress Cardiovascular: positive Regular rate & rhythm Abdomen: positive Non-tender Skin: positive Color nml Extremities: positive Non-tender Neurologic/Psychiatric: positive Oriented x3 Lab Results 04/16/25 04:27 04/16/25 04:27 Other Labs: Lab Results x24hrs 04/16/25 04/16/25 04/16/25 Range/Units 11:41 08:04 04:27 WBC 3.0 L (4.8-10.8) x10^3/uL RBC 2.36 L (4.20-5.40) 10^6/uL Hgb 8.0 L (12.0-16.0) g/dL Hct 24.1 L (37.0-47.0) % MCV 102.1 H (81.0-99.0) fL MCH 33.9 H (27.0-31.0) pg MCHC 33.2 (32.0-36.0) g/dL RDW 12.9 (12.0-15.0) % Plt Count 112 L (130-450) 10^3/uL MPV 9.5 (7.9-10.8) fL Neut # (Auto) Not Reportable Lymph # (Auto) Not Reportable [place] # (Auto) Not Reportable Eos # (Auto) Not Reportable Baso # (Auto) Not Reportable Absolute Nucleated RBC Not Reportable Total Counted 100 Band Neuts % (Manual) 0 (0 - 10) % Abnorm Lymph % (Manual) 0 % Nucleated RBC % Not Reportable Neutrophils # (Manual) 2.0 (1.5-6.6) 10^3/uL Lymphocytes # (Manual) 0.9 L (1.5-3.5) 10^3/uL Monocytes # (Manual) 0.1 (0.0-1.0) 10^3/uL Eosinophils # (Manual) 0.0 (0-0.7) 10^3/uL Basophils # (Manual) 0.0 (0-0.1) 10^3/uL Differential Comment MANUAL DIFFERENTIAL WBC Morphology NORMAL APPEARANCE (NORMAL) Platelet Estimate DECREASED (<130,000) (NORMAL) Platelet Morphology NORMAL APPEARANCE (NORMAL) RBC Morph Micro Appear NORMAL APPEARANCE (NORMAL) Sodium 140 (135-145) mmol/L Potassium 3.0 L (3.5-4.5) mmol/L Chloride 107 (101-111) mmol/L Carbon Dioxide 26 (21-32) mmol/L Anion Gap 7.0 (6-13) BUN 20 (6-20) mg/dL Creatinine 2.5 H (0.6-1.3) mg/dL Estimated GFR (MDRD) 19 L (>89) Glucose 129 H (74-104) mg/dL POC Whole Bld Glucose 173 130 (70-100) mg/dL Calcium 8.4 L (8.5-10.3) mg/dL Magnesium 1.0 L* (1.7-2.3) mg/dL 04/15/25 04/15/25 Range/Units 20:46 16:44 WBC (4.8-10.8) x10^3/uL RBC (4.20-5.40) 10^6/uL Hgb (12.0-16.0) g/dL Hct (37.0-47.0) % MCV (81.0-99.0) fL MCH (27.0-31.0) pg MCHC (32.0-36.0) g/dL RDW (12.0-15.0) % Plt Count (130-450) 10^3/uL MPV (7.9-10.8) fL Neut # (Auto) Lymph # (Auto) [place] # (Auto) Eos # (Auto) Baso # (Auto) Absolute Nucleated RBC Total Counted Band Neuts % (Manual) (0 - 10) % Abnorm Lymph % (Manual) % Nucleated RBC % Neutrophils # (Manual) (1.5-6.6) 10^3/uL Lymphocytes # (Manual) (1.5-3.5) 10^3/uL Monocytes # (Manual) (0.0-1.0) 10^3/uL Eosinophils # (Manual) (0-0.7) 10^3/uL Basophils # (Manual) (0-0.1) 10^3/uL Differential Comment WBC Morphology (NORMAL) Platelet Estimate (NORMAL) Platelet Morphology (NORMAL) RBC Morph Micro Appear (NORMAL) Sodium (135-145) mmol/L Potassium (3.5-4.5) mmol/L Chloride (101-111) mmol/L Carbon Dioxide (21-32) mmol/L Anion Gap (6-13) BUN (6-20) mg/dL Creatinine (0.6-1.3) mg/dL Estimated GFR (MDRD) (>89) Glucose (74-104) mg/dL POC Whole Bld Glucose 156 157 (70-100) mg/dL Calcium (8.5-10.3) mg/dL Magnesium (1.7-2.3) mg/dL Assessment/Plan Problem List (1) NOLAN (acute kidney injury): Impression: Acute kidney injury is secondary to medication effect from metformin Her potassium is now going down, it was 4.1 this morning I am switching her IV fluids to LR at 150 as she does have a metabolic acidosis VBG shows pH 7.386, so she is compensating for this acidosis If she decompensates, she would likely benefit from bicarb BMP in a.m. 04/15:Her creatinine is 2.8 this morning. Potassium 3.1, repleted. Continue LR at 150. I hope to see significant improvement in her creatinine by tomorrow and her GFR needs to be greater than 20 to safely discharge 04/16: Creatinine down to 2.5. Baseline around 1.5. Continuing LR, now at 125. She no longer appears dehydrated, no more delay in skin turgor (2) Diabetes: Impression: I have held her metformin, I recommend she continue holding this as this is her second episode of acute kidney injury secondary to this Most recent A1c 7.3 in February of this year SSI Qualifiers: Diabetes mellitus type: type 2 Diabetes mellitus terminal clerk insulin use: without mcfp use Diabetes mellitus complication status: without complication Qualified Code(s): E11.9 - Type 2 diabetes mellitus without complications (3) Hypokalemia: Impression: She has had consistently low potassiums for the past few days. I checked her magnesium today and it was 1. I am replating her electrolytes with 2 g magnesium and 40 mEq potassium. Daily BMP, magnesium
[2025-04-16] MEDS: CYANOCOBALAMIN 500 MCG TABLET PO SCH (18:11)
[2025-04-16] MEDS: APIXABAN 2.5 MG TABLET PO SCH (21:46)
[2025-04-17 04:52] LABS: HCT - HEMATOCRIT 23.0 % (37.0-47.0); HGB - HEMOGLOBIN 7.9 g/dL (12.0-16.0); MEAN PLATELET VOLUME 9.5 fL (7.9-10.8); PLT - PLATELET COUNT 90 10^3/uL (130-450); RED CELL DISTRIBUTION WIDTH 12.9 % (12.0-15.0)
[2025-04-17 05:00] LABS: ABNORMAL LYMPHS % (MANUAL) 0 %; BAND NEUTROPHILS % (MANUAL) 0 %; BASOPHILS # (MANUAL) 0.0 10^3/uL (0-0.1)
[2025-04-17 05:08] LABS: BUN - BLOOD UREA NITROGEN 17.0 mg/dL (6-20); CARBON DIOXIDE - CO2 26.0 mmol/L (21-32); CREATININE 2.2 mg/dL (0.6-1.3); GFR - MDRD 22.0 (>89)
[2025-04-17 06:18] LABS: EOSINOPHILS # (MANUAL) 0.2 10^3/uL (0-0.7); LYMPHOCYTES # (MANUAL) 0.7 10^3/uL (1.5-3.5); LYMPHOCYTES % (MANUAL) 26 %; MONOCYTES # (MANUAL) 0.3 10^3/uL (0.0-1.0); NEUTROPHILS # (MANUAL) 1.4 10^3/uL (1.5-6.6)
[2025-04-17 06:19] LABS: PLATELET ESTIMATE, MANUAL DECREASED (<130,000) (NORMAL); PLATELET MORPHOLOGY NORMAL APPEARANCE (NORMAL); RBC MORPHOLOGY (MULTIPLE) NORMAL APPEARANCE (NORMAL); WBC MORPHOLOGY (MULTIPLE) NORMAL APPEARANCE (NORMAL)
[2025-04-17] MEDS: POTASSIUM CHLORIDE 20 MEQ TABLET PO ONE ×2 (10:29→17:31)
--- NOTE | 2025-04-17 11:16 | PROVIDER PROGRESS NOTE ---
Subjective Prog Note Date Prog Note Date: 04/17/25 Subjective Pt reports feeling: No change Current Medications Current Medications Current Medications: Current Medications Generic Name Dose Route Start Last Admin Trade Name Freq PRN Reason Stop Dose Admin Acetaminophen 650 mg 04/13/25 17:09 Acetaminophen 325 Mg Tablet PO Q4HR PRN Pain 1 to 4, or Fever Anastrozole 1 mg 04/18/25 09:00 Anastrozole 1 Mg Tablet PO DAILY CHAVA Apixaban 2.5 mg 04/16/25 21:00 04/17/25 08:43 Apixaban 2.5 Mg Tablet PO 2.5 mg BID CHAVA Administration Atorvastatin Calcium 80 mg 04/17/25 21:00 Atorvastatin 40 Mg Tablet PO QPM CHAVA Clopidogrel Bisulfate 75 mg 04/18/25 09:00 Clopidogrel 75 Mg Tablet PO DAILY CHAVA Cyanocobalamin 500 mcg 04/16/25 17:00 04/17/25 08:43 Cyanocobalamin 500 Mcg Tablet PO 500 mcg DAILY CHAVA Administration Lactated Ringer's 1,000 mls @ 125 mls/hr 04/16/25 12:00 04/17/25 10:31 Lr IV 125 mls/hr .Q8H CHAVA Administration Potassium Chloride 10 meq in 100 mls @ 100 mls/hr 04/17/25 11:00 Potassium Chloride IV 04/17/25 14:59 Q1H CHAVA Magnesium Sulfate 2 gm in 50 mls @ 25 mls/hr 04/17/25 11:00 Magnesium Sulfate IV 04/17/25 14:59 Q2H CHAVA Insulin Human Lispro 1 - 5 unit 04/14/25 12:00 04/17/25 08:27 Insulin Lispro 300 Unit/3 Ml Pen SUBQ Not Given 0800,1200,1700,2100 [facility] Protocol Ondansetron HCl 4 mg 04/13/25 17:09 Ondansetron Odt 4 Mg Tablet TL Q6HR PRN Nausea / Vomiting Ondansetron HCl 4 mg 04/13/25 17:09 Ondansetron 4 Mg/2 Ml Vial IVP Q6HR PRN Nausea / Vomiting Paroxetine HCl 20 mg 04/18/25 09:00 Paroxetine 10 Mg Tablet PO DAILY [facility] Multivit/Folic Acid/Iron 1 tab 04/18/25 08:00 Vitamin Tablet PO DAILYWM [facility] Propranolol HCl 20 mg 04/17/25 21:00 Propranolol 10 Mg Tablet PO BID CHAVA Sodium Chloride 10 ml 04/13/25 17:09 Sodium Chloride Flush 0.9% 10 Ml Syringe IVP PRN PRN NEEDED PER PROVIDER ORDERS Sodium Chloride 10 ml 04/13/25 17:09 04/17/25 08:43 Sodium Chloride Flush 0.9% 10 Ml Syringe IVP 10 ml 0100,0900,1700 CHAVA Administration Objective Vital Signs/Intake & Output Reviewed Vital Signs: Yes Vital Signs: Vital Signs x48h Temp Pulse Resp BP Pulse Ox 04/17/25 08:08 36.5 C 93 18 110/51 L 93 Intake & Output: Intake & Output 04/14/25 04/15/25 04/16/25 04/17/25 23:59 23:59 23:59 23:59 Intake Total 4538 / 4538 3986 / 3986 5636 / 5636 2295 / 2295 Output Total 400 / 400 Balance 4138 / 4138 3986 / 3986 5636 / 5636 2295 / 2295 Objective General Appearance: positive No acute distress and Alert Eyes Bilateral: positive Normal inspection ENT: positive ENT inspection nml Neck: positive Nml inspection Respiratory: positive Chest non-tender and No respiratory distress Cardiovascular: positive Regular rate & rhythm Abdomen: positive Non-tender Skin: positive Color nml Extremities: positive Non-tender Neurologic/Psychiatric: positive Oriented x3 Lab Results 04/17/25 04:21 04/17/25 04:21 Other Labs: Lab Results x24hrs 04/17/25 04/17/25 04/16/25 Range/Units 07:39 04:21 20:48 WBC 2.5 L (4.8-10.8) x10^3/uL RBC 2.29 L (4.20-5.40) 10^6/uL Hgb 7.9 L (12.0-16.0) g/dL Hct 23.0 L (37.0-47.0) % MCV 100.4 H (81.0-99.0) fL MCH 34.5 H (27.0-31.0) pg MCHC 34.3 (32.0-36.0) g/dL RDW 12.9 (12.0-15.0) % Plt Count 90 L (130-450) 10^3/uL MPV 9.5 (7.9-10.8) fL Neut # (Auto) Not Reportable Lymph # (Auto) Not Reportable [place] # (Auto) Not Reportable Eos # (Auto) Not Reportable Baso # (Auto) Not Reportable Absolute Nucleated RBC Not Reportable Total Counted 100 Band Neuts % (Manual) 0 (0 - 10) % Abnorm Lymph % (Manual) 0 % Nucleated RBC % Not Reportable Neutrophils # (Manual) 1.4 L (1.5-6.6) 10^3/uL Lymphocytes # (Manual) 0.7 L (1.5-3.5) 10^3/uL Monocytes # (Manual) 0.3 (0.0-1.0) 10^3/uL Eosinophils # (Manual) 0.2 (0-0.7) 10^3/uL Basophils # (Manual) 0.0 (0-0.1) 10^3/uL Differential Comment MANUAL DIFFERENTIAL WBC Morphology NORMAL APPEARANCE (NORMAL) Platelet Estimate DECREASED (<130,000) (NORMAL) Platelet Morphology NORMAL APPEARANCE (NORMAL) RBC Morph Micro Appear NORMAL APPEARANCE (NORMAL) Sodium 140 (135-145) mmol/L Potassium 2.9 L (3.5-4.5) mmol/L Chloride 107 (101-111) mmol/L Carbon Dioxide 26 (21-32) mmol/L Anion Gap 7.0 (6-13) BUN 17 (6-20) mg/dL Creatinine 2.2 H (0.6-1.3) mg/dL Estimated GFR (MDRD) 22 L (>89) Glucose 147 H (74-104) mg/dL POC Whole Bld Glucose 132 148 (70-100) mg/dL Calcium 8.4 L (8.5-10.3) mg/dL Magnesium 1.1 L (1.7-2.3) mg/dL 04/16/25 04/16/25 Range/Units 16:32 11:41 WBC (4.8-10.8) x10^3/uL RBC (4.20-5.40) 10^6/uL Hgb (12.0-16.0) g/dL Hct (37.0-47.0) % MCV (81.0-99.0) fL MCH (27.0-31.0) pg MCHC (32.0-36.0) g/dL RDW (12.0-15.0) % Plt Count (130-450) 10^3/uL MPV (7.9-10.8) fL Neut # (Auto) Lymph # (Auto) [place] # (Auto) Eos # (Auto) Baso # (Auto) Absolute Nucleated RBC Total Counted Band Neuts % (Manual) (0 - 10) % Abnorm Lymph % (Manual) % Nucleated RBC % Neutrophils # (Manual) (1.5-6.6) 10^3/uL Lymphocytes # (Manual) (1.5-3.5) 10^3/uL Monocytes # (Manual) (0.0-1.0) 10^3/uL Eosinophils # (Manual) (0-0.7) 10^3/uL Basophils # (Manual) (0-0.1) 10^3/uL Differential Comment WBC Morphology (NORMAL) Platelet Estimate (NORMAL) Platelet Morphology (NORMAL) RBC Morph Micro Appear (NORMAL) Sodium (135-145) mmol/L Potassium (3.5-4.5) mmol/L Chloride (101-111) mmol/L Carbon Dioxide (21-32) mmol/L Anion Gap (6-13) BUN (6-20) mg/dL Creatinine (0.6-1.3) mg/dL Estimated GFR (MDRD) (>89) Glucose (74-104) mg/dL POC Whole Bld Glucose 178 173 (70-100) mg/dL Calcium (8.5-10.3) mg/dL Magnesium (1.7-2.3) mg/dL Assessment/Plan Problem List (1) NOLAN (acute kidney injury): Impression: Acute kidney injury is secondary to medication effect from metformin Her potassium is now going down, it was 4.1 this morning I am switching her IV fluids to LR at 150 as she does have a metabolic acidosis VBG shows pH 7.386, so she is compensating for this acidosis If she decompensates, she would likely benefit from bicarb BMP in a.m. 04/15:Her creatinine is 2.8 this morning. Potassium 3.1, repleted. Continue LR at 150. I hope to see significant improvement in her creatinine by tomorrow and her GFR needs to be greater than 20 to safely discharge 04/16: Creatinine down to 2.5. Baseline around 1.5. Continuing LR, now at 125. She no longer appears dehydrated, no more delay in skin turgor 04/17: Creatinine has improved to 2.2. Baseline 1.5, continue IVF (2) Diabetes: Impression: I have held her metformin, I recommend she continue holding this as this is her second episode of acute kidney injury secondary to this Most recent A1c 7.3 in February of this year SSI Qualifiers: Diabetes mellitus type: type 2 Diabetes mellitus long-term insulin use: without long-term use Diabetes mellitus complication status: without complication Qualified Code(s): E11.9 - Type 2 diabetes mellitus without complications (3) Hypokalemia: Impression: She has had consistently low potassiums for the past few days. I checked her magnesium today and it was 1. I am replating her electrolytes with 2 g magnesium and 40 mEq potassium. Daily BMP, magnesium 04/17: K2.9, magnesium 1.1 today. I have ordered 40 mEq p.o., 40 mEq IV potassium chloride and 4 g magnesium sulfate IV. Recheck BMP, magnesium this afternoon
[2025-04-17] MEDS: POTASSIUM CHLOR 10 MEQ/100 ML 10 MEQ/100 ML BAG IV SCH (11:19)
[2025-04-17] MEDS: MAGNESIUM SULFATE 2 GRAM 2 GM/50 ML BAG IV SCH (11:19)
[2025-04-17 16:47] LABS: BUN - BLOOD UREA NITROGEN 17.0 mg/dL (6-20); CARBON DIOXIDE - CO2 27.0 mmol/L (21-32); CREATININE 2.1 mg/dL (0.6-1.3); GFR - MDRD 23.0 (>89)
[2025-04-17] MEDS: ATORVASTATIN 40 MG TABLET PO SCH (20:48)
[2025-04-17] MEDS: PROPRANOLOL 10 MG TABLET PO SCH (20:49)
[2025-04-18 06:03] LABS: HCT - HEMATOCRIT 24.0 % (37.0-47.0); HGB - HEMOGLOBIN 7.9 g/dL (12.0-16.0); MEAN PLATELET VOLUME 9.7 fL (7.9-10.8); NRBC ABSOLUTE COUNT (AUTO) 0.00 x10^3/uL; NUCLEATED RED BLOOD CELLS AUTO 0.0 /100WBC; PLT - PLATELET COUNT 94 10^3/uL (130-450); RED CELL DISTRIBUTION WIDTH 13.2 % (12.0-15.0)
[2025-04-18 06:09] LABS: ABSOLUTE RETICS # AUTO 0.016 10^6/uL (0.020-0.110); RETICULOCYTE COUNT % (AUTO) 0.67 % (0.5-2.3)
[2025-04-18 06:15] LABS: % IRON SATURATION 41.0 % (20-50); BUN - BLOOD UREA NITROGEN 15.0 mg/dL (6-20); CARBON DIOXIDE - CO2 27.0 mmol/L (21-32); CREATININE 2.1 mg/dL (0.6-1.3); GFR - MDRD 23.0 (>89)
[2025-04-18] MEDS: PRENATAL VITAMIN TABLET PO SCH (08:29)
[2025-04-18] MEDS: CLOPIDOGREL 75 MG TABLET PO SCH (08:29)
[2025-04-18] MEDS: ANASTROZOLE 1 MG TABLET PO SCH (08:30)
--- NOTE | 2025-04-18 13:14 | Discharge Summary ---
Discharge Summary Admit Date: 04/13/25 Discharge Date: 04/18/25 Discharging Provider: Abimbola Jordan PA-C Primary Care Provider: Pipap Guido MD Code Status: Do Not Attempt Resuscitation DIAGNOSES Discharge Diagnoses with Status of Each Condition: Acute kidney injury, resolving Diabetes mellitus, holding metformin Hypokalemia, repleted and normalized Hypomagnesemia, repleted and normalized HPI History of Present Illness: 74-year-old female with history of breast cancer on Scali as well as diabetes on metformin. She had an admission last month for acute dehydration with acute kidney injury. She stopped her metformin at that time, but then restarted it later. She reports nausea, vomiting, diarrhea for about a week. She went to establish herself with a new PCP yesterday, who recommended that she stop her metformin. Her symptoms have persisted and she is still weak and unable to drink enough water, so she presented to the ER In the ER, lab work was significant for creatinine 3.4, CO2 15, potassium 4.6. No elevation in WBC, RVP negative, UA in process. She was given a liter of IV fluids, and chemistry was rechecked and creatinine improved to 3.0. She is still incredibly weak with acute kidney injury, so hospitalist was contacted for observation HOSPITAL COURSE Hospital Course: 74-year-old female with history of diabetes mellitus most recent hemoglobin A1c 7.3% on 03/16/2025, presented with an acute kidney injury. It is noted that her creatinine has been increasing recently, she is on therapy for breast cancer with a medication called Kisqali, which is associated with increased serum creatinine but acute kidney injury is not recognized with this drug. She has been on and off the medication recently with acute illness and recent [facility] stay. Since being admitted to the hospital her serum creatinine has gradually improved from a value of 3.4 on the date of admission to 2.1 this morning. Her baseline is closer to 1.5. She feels much better and misses her terribly, she is ready to get home. I had a discussion with the patient about her diabetes and control of it. It is possible that the metformin is contributing to this rising creatinine and therefore I am recommending that she stop it at this time. We have arranged close follow-up with her primary care provider and they can discuss further medication to control her diabetes at that time. I have also recommended that she follow-up ELISEO with her oncologist. I was able to review the most recent note from November 25 of this year and recommendation was for follow-up in 1 month. Unfortunately she became ill and the rest of these last few months have been complicated by a [facility] facility stay and rehab. At the time of primary care follow-up she should have repeat chemistries to include potassium, renal function and magnesium. On discharge I recommended that she stop her metformin and that she start a B12 supplement as it was identified that she had low B12 during this admission. ALLERGIES Allergies Allergy/AdvReac Type Severity Reaction Status Date / Time No Known Drug Allergies Allergy Verified 04/13/25 11:12 MEDICATIONS Ambulatory Orders Medication Instructions Recorded Confirmed ribociclib 400 mg/day (200 mg x 2) 400 mg PO DAILY 04/14/25 tablets (Kisqali) acetaminophen 325 mg tablet 650 mg (2 x 325 mg) PO Q4H R PRN 03/08/25 04/14/25 Pain 1 to 4, or Fever #30 tabs anastrozole 1 mg tablet 1 mg PO DAILY #30 tabs 03/0804/14/25 clopidogrel 75 mg tablet 75 mg PO DAILY #30 tabs 02/1704/13/25 paroxetine HCl 20 mg tablet 20 mg PO DAILY #30 tabs 04/14/25 vit,calcium 27-ferrous 1 tab PO DAILYWM #30 t abs 03/08/25 04/14/25 fum 60 mg iron-folic acid 1 mg tablet (Trinatal Rx 1) propranolol 20 mg tablet 20 mg PO BID #60 tabs 04/14/25 rosuvastatin 40 mg tablet 40 mg PO DAILY #30 tabs 02/1704/14/25 cyanocobalamin (vitamin B-12) 500 500 mcg PO DAILY #30 tabs 04/18/25 mcg tablet (B-12 DOTS) PHYSICAL EXAM AT DISCHARGE Vital Signs: Vital Signs x48h Temp Pulse Resp BP Pulse Ox 04/18/25 15:09 36.7 C 85 20 108/54 L 98 Physical Exam Other/Comments: General Appearance: positive No acute distress and Alert Eyes Bilateral: positive Normal inspection ENT: positive ENT inspection nml Neck: positive Nml inspection Respiratory: positive Chest non-tender and No respiratory distress Cardiovascular: positive Regular rate & rhythm Abdomen: positive Non-tender Skin: positive Color nml Extremities: positive Non-tender Neurologic/Psychiatric: positive Oriented x3 LABS 04/18/25 05:42 04/18/25 05:42 FOLLOW UP Follow Up: PCP later this week- scheduled. I have advised patient to see her oncologist (Aby Tadeo at [facility] in [place]) as soon as possible. TIME SPENT Time Spent in Discharge (Minutes): 40 Discharge Plan Discharge Patient Disposition: Home, Self Care Condition: Stable Prescriptions: New cyanocobalamin (vitamin B-12) [B-12 DOTS] 500 mcg tablet 500 mcg PO DAILY Qty: 30 0RF Continued Kisqali 400 mg/day (200 mg x 2) tablet 400 mg PO DAILY Patient Comments: 200mg x2 tabs, patient states she stopped taking when she got sick. acetaminophen 325 mg Tablet 650 mg PO Q4HR PRN (Reason: Pain 1 to 4, or Fever) Qty: 30 0RF Trinatal Rx 1 60 mg iron-1 mg Tablet 1 tab PO DAILYWM Qty: 30 0RF anastrozole 1 mg tablet 1 mg PO DAILY Qty: 30 0RF clopidogrel 75 mg tablet 75 mg PO DAILY Qty: 30 0RF paroxetine HCl 20 mg tablet 20 mg PO DAILY Qty: 30 0RF propranolol 20 mg tablet 20 mg PO BID Qty: 60 0RF rosuvastatin 40 mg tablet 40 mg PO DAILY Qty: 30 0RF Discontinued metformin 1,000 mg tablet 1,000 mg PO BID Activity Restrictions: Activity as Tolerated Diet: Diabetic Health Concerns: You came into the hospital with nausea vomiting and diarrhea such that you had become severely dehydrated and your kidneys were not doing well. Looking at your labs, overall, your kidney function has declined over the last year or so. Exactly why is not clear, as you have had multiple health events recently. At this time, I am recommending that you STOP metformin. You have an appointment the day after tomorrow with Dr Guido, and can dicuss further at that time. While you are off metformin, you need to stick to a diabetic diet. This means avoiding carbohydrates and having whole grains in favor of "white" foods. (ie whole grain bread and pasta instead of regular and less of these things). Make sure to drink 2-3 of the hospital cups of water a day, as we have discussed. I think you also need to see Dr Tadeo, your cancer doctor, as soon as you can get on her schedule- I think you need her option further on if the Kisqali is causing the problems you are having, or contributing to them. Care Plan Goals: Followup with Dr Guido April 20 at 1245 Call [facility], Dr Tadeo for followup as well Print Language: Angolan Patient Instructions: Metformin, Acute Kidney Failure Dc Stand Alone Forms: PCP List Follow-up Care: Pippa Guido MD [Primary Care Provider, Family Practice] Vitals documented within 30 minutes of discharge?: Yes (See VSs on chart)
[2025-04-18 15:12] VITALS: BP 108/54; TEMP 98.1; O2SAT 98
== END 2025-04-18 15:15 | disposition home or self-care (01) | DRG 683 ==
LOC: MS3 11:00 → ED 11:00 → MS3 17:05
PROVIDERS: ADMIT Nurse Practitioner Acute Care; ATTEND Nurse Practitioner Acute Care